=== PATIENT | male | born 1975 | race Caucasian/White ===

== ENCOUNTER → 2019-06-28 12:48 | Outpatient (BNVA) | payer BC, SELFPAY | PROVIDERS: Family Provider Family Medicine; Visit Provider Nurse Practitioner Family | DX: R05 Cough (principal) | CPT/HCPCS: 87071; 87400; 87635; 87880 ==

== ENCOUNTER → 2019-10-04 00:01 | Outpatient (BNVA) | payer BC, SELFPAY | PROVIDERS: Family Provider Family Medicine; Visit Provider Nurse Practitioner Family | DX: R52 Pain, unspecified (principal); Z20.828 Contact with and (suspected) exposure to other viral communicable diseases | CPT/HCPCS: 87635 ==

== ENCOUNTER 2025-02-18 03:38 | Emergency (ER) | payer BC, SELFPAY ==
--- OUTSIDE RECORDS SUMMARY | 2023-12-26 07:20 | XMS_ITS ---
Author Organization [facility] Address [address] [place] [address] Care Team Providers Care Snowblower Mechanic Name Role Phone Peggy Camara Primary Care Provider CAMARA, PEGGY Unavailable Unavailable REASON FOR VISIT F/U Encounters Encounter Location Date Provider Diagnosis 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
--- OUTSIDE RECORDS SUMMARY | 2024-10-18 03:20 | XMS_ITS ---
Author Organization [facility] Address [address] [place] [address] Care Team Providers Care Zigzag Tunnel Elastic Operator Name Role Phone Jax Peggy Primary Care Provider CAMARA, PEGGY Unavailable Unavailable REASON FOR VISIT 1 month Follow Up, Patient in need of CMP,A1C,CBC, PSA, Thyroid, Lipid, UA Microalbumin Labs, and Statin therapy for Kidney Health, Need Annual Diabetic eye exam, Colon Screen needed Encounters Encounter Location Date Provider Diagnosis [facility] Office [address] [place] [phone] 10/18/2024 [facility] Plan Of Treatment No Information Progress Notes * Bryce FREYDOB: 7 (49 yo M)Acc No.[id number]:10/18/2024 Progress Notes Patient: Bryce Akins Provider: Forrest Camara APRN :1975 A ge:49 Y S ex:Male Date:10/18/2024 Address:[address] [place], [place] [phone] Subjective: * Chief Complaints: * 1 month Follow UpPatient in need of CMP,A1C,CBC, PSA, Thyroid, Lipid, UA Microalbumin Labs, and Statin therapy for Kidney HealthNeed Annual Diabetic eye examColon Screen needed Plan: * Preventive Medicine: Screenings: D IABETIC EYE EXAM Date of last dilated eye exam 0 05/09/2022 Dr. Vasques Retinopathy N o C OLORECTAL CANCER SCREENING: Date of last colonoscopy H as never been done Colorectal screening: H as never been done V ACCINATIONS: Completed vaccinations include: I ncludes covid vaccines P HQ9 09/13/24. Billing Information: * Procedure Codes: Care Plan Details* * Electronic signature of Alicia Camara APN on 02/18/2025 at 03:45 AM EASEMENT WORKER Sign off status: Pending * Provider: Forrest Camara ANESTHESIOLOGIST PHYSICIAN Date: 0 10/18/2024 Generated for Pramod newton/Hugo/Arletteitting on: 04/20/2024 03:45 AM EASEMENT WORKER
--- OUTSIDE RECORDS SUMMARY | 2025-02-18 03:46 | XMS_ITS | Data Portability ---
Author Organization [facility] Karena Kovacs [facility] Address [address] [place] [phone] Assessment No assessment recorded. Plan of Treatment Reminders Order Date Submit Date Provider Last Modified By Organization Details Last Modified Time Details Appointments None record ed. Lab None record ed. Referral None record ed. Procedures None record ed. Surgeries None record ed. Imaging XR, ankle, 3 or more view 023 03/01/20 23 [id number] [facility] ([facility]), [address] [place] [address], [phone], 3 10:01:27 Medication Orders None record ed. Patient TargetsNo targets recorded. Patient InstructionsNo instructions recorded. Reason for Referral None Reported. Medical Equipment None Reported. Allergies No known drug allergies Medications Name Sig Start Date Stop Date Status Note LastModified by Organization Details LastModified Time metformin 500 mg tablet TAKE 1 TABLET BY MOUTH TWICE A DAY WITH FOOD active Not Available Not Available No t Available azithromyc in 250 mg tablet TAKE 2 TABLETS BY MOUTH TODAY, THEN TAKE 1 TABLET DAILY FOR 4 DAYS active Not Available Not Available No t Available alprazolam 0.5 mg tablet TAKE 1/2 TO 1 TABLET BY MOUTH TWICE A DAY NEEDED FOR ANXIETY 30 DAYS active Not Available Not Available No t Available gabapentin 300 mg capsule TAKE ONE CAPSULE BY MOUTH 6 TIMES DAILY DIRECTED active Not Available Not Available No t Available lisinopril 5 mg tablet TAKE 1 TABLET BY MOUTH EVERY DAY active Not Available Not Available No t Available escitalopr am 20 mg tablet TAKE 1 TABLET BY MOUTH EVERY DAY active Not Available Not Available No t Available metformin two times daily 2014 active take for blood sugar control. Take with food. v/o CSwift/ mithRN; 04470; Recorded 5 4:07PM by Conchis Boland RN (Authoriz ed through Pedrito Abarca DO), Refill Request; Refill Quantity: 120; Tablet; Not Available Not Available Not Available Victoza 3-Darren 0.6 mg/0.1 mL (18 mg/3 mL) subcutaneo us pen injector INJECT 1.8MG SUBCUTANE OUSLY EVERY DAY active Not Available Not Available No t Available Vitals Date Recorded Body height Body mass index (BMI) Body weight Oxygen saturation Heart rate Body temperature Respiratory rate Provider Name and Address Organization Details Last Updated DateTime 3 187.96 cm 35.3 kg/m2 632088. 9 g 97 % 81 /min 96.6 [degF] 20 /min Felicia Badillo [facility], [facility] 3 12:06:38 Social History None recorded. Functional Status None recorded. Mental Status None recorded. Family History Nothing Reported. Medical History No medical history recorded. Past Encounters Encounter ID Performer Location Encounter Start Date Encounter Closed Date Diagnosis/Indication Diagnosis SNOMED-CT Code Diagnosis ICD10 Code Diagnosis IMO Codes Diagnosis Note [id number] [facility] ([facility]) [address] [place] [phone] 03/01/2023 11:09:52 03/01/2023 14:47:15 Pain in left foot 5680360703 62862 M79.672 Sprain of left ankle 105 8579402 0896489 S93.402A Will send Xray to radiology for overread. RICE. Max wrap bandage placed. Patient will follow with PCP Suzanne CHINP next week. Health Concerns Section Related Observation LastModified by Organization Detai ls LastModified Time None Recorded Concern Status LastModified by Organization Details LastModified Time None Recorded Advance Directives Directive None Recorded Payers Insurance Date Sequence Insurance Name Policy Number Policy Alvarez Covered Member ID Alvarez Member ID Guarantor Name 04/08/2023 1 [place] [id number] Bryce Frey [id number] Bryce Blackwell Shante Notes Date Note Type Note Provider Name and Address Organization Details Recorded Time 03/01/20 23 text/htm l Joint PainReported by PatientHPIFor location, patient reportspain radiating to the foot leftbut reportsleft ankle. For quality, patient reportssharpandtingling. For severity, patient reportsinterferes with sleepbut reportsno change. For associated symptoms, patient reportstinglingandnumbness of the legs/feet. For duration, patient reportspresent <1 month. For timing, patient reportsintermittent. For context, patient reportstrauma. For alleviating factors, patient reportsrest. For aggravating factors, patient reportsmovement/positioningand twisting. For adls affected, patient reportsclimbing stairs.Patient states that he fell while descending bleachers and landed with his right foot and leg under him. States that he has pain and swelling with most of pain on the lateral aspect of the left ankle.ROS as noted in the HPI [facility] [address] [place] [address], [phone], [facility] 03/01/2023 14:41:26
--- OUTSIDE RECORDS SUMMARY | 2025-02-18 03:46 | XMS_ITS | Clinical Summary ---
Author Organization [facility] Address [address] Edwards: Epic Prelude ADT [place]AL [phone] Care Team Providers Care Traffic Representative Name Role Phone Unavailable Primary Care Provider Unavailabl e Allergies No known active allergies Medications OTHER Presnisolone 1%, Gatifloxacin 0.5%, Bromfenac 0.07%. Start 3 days before surgery 1 drop 3 times a day in the surgical eye for 24 days. 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 Gender Identity Not on file Sexual Orientation Not on file Last Filed Vital Signs Vital Sign Reading Time Taken Comments Blood Pressure 121/72 12/07/2019 10:34 AM CDT Pulse 74 12/07/2019 10:34 AM CDT Temperature 36.4 C (97.6 F) 12/07/2019 10:34 AM CDT Respiratory Rate 18 12/07/2019 8:55 AM CDT Oxygen Saturation - - Inhaled Oxygen Concentration - - Weight 122.5 kg (270 lb) 12/07/2019 1:18 PM CDT Height 188 cm (6' 2 ) 12/07/2019 1:18 PM CDT Body Mass Index 34.67 12/07/2019 1:18 PM CDT Plan of Treatment Health Maintenance Due Date Last Done Comments DTAP/TDAP/TD VACCINES (1 - Tdap) 06/23/1995 HEPATITIS B VACCINES (1 of 3 - 19+ 3-dose series) 03/1995 COLORECTAL SCREENING 2021 Colorectal Cancer Screening 2021 FIT-DNA Q 3 years 2021 FIT/FOBT Q 1 year 2021 Flex Sig/CT Colonography Q 5 years 2021 INFLUENZA VACCINE (#1) 2024 Medical Devices Implanted Type Area Buhr Mill Operator Device Identifier Shelf Expiration Date Model / Serial / Lot Lens Io Tecnis Multi 2.75pl Zkb00 21.5d - [id number] Implanted:Qty: 1 on 11/23/2019 by Javier Rob MD Eye Left: Eye [employer] 11/24/2021 ZKB00 21.5D / [id number] / Lens Io Tecnis Multi 2.75pl Zkb00 21.0d - [id number] Implanted:Qty: 1 on 12/07/2019 by Javier Rob MD Eye Right: Eye [employer] 08/18/2021 ZKB00 21.0D / [id number] /
--- OUTSIDE RECORDS SUMMARY | 2025-02-18 03:46 | XMS_ITS | Clinical Summary ---
Author Organization [facility] Address [address] [place] [address] Care Team Providers Care Party Plan Dealer Name Role Phone Unavailable Primary Care Provider Unavailabl e Allergies No known active allergies Medications OTHERIndication s:Send both bottles at once Presnisolone 1%, Gatifloxacin 0.5%, Bromfenac 0.07%. Start 3 days before surgery 1 drop 3 times a day in the surgical eye for 24 days. 4 mL 1 0 Active lisinopriL (PRINIVIL) 10 mg tablet 0 Active metFORMIN (GLUCOPHAGE) 1,000 mg tablet TK 1 T PO BID FOR DIABETES MELLITUS 0 Active glipiZIDE (GLUCOTROL XL) 5 mg Extended Release 24 hour tablet TK 1 T PO QAM BEFORE THE FIRST MEAL 0 Active Active Problems No known active problems Social History Tobacco Use Types Packs/Day Years Used Date Smoking Tobacco: Never Smokeless Tobacco: Never Sex and Gender Information Value Date Recorded Sex Assigned at Not on file Legal Sex Male 2:47 PM CDT Gender Identity Not on file Sexual Orientation Not on file Last Filed Vital Signs Vital Sign Reading Time Taken Comments Blood Pressure 121/72 12/07/2019 10:34 AM CDT Pulse 74 12/07/2019 10:34 AM CDT Temperature 36.4 C (97.6 F) 12/07/2019 10:34 AM CDT Respiratory Rate 18 12/07/2019 8:55 AM CDT Oxygen Saturation 96% 12/07/2019 10:34 AM CDT Inhaled Oxygen Concentration - - Weight 122.5 kg (270 lb) 12/07/2019 1:18 PM CDT Height 188 cm (6' 2 ) 12/07/2019 1:18 PM CDT Body Mass Index 34.67 12/07/2019 1:18 PM CDT Plan of Treatment Health Maintenance Due Date Last Done Comments DIABETES ANNUAL FOOT EXAM 1994 DIABETES HBA1C Q 6 MONTHS 1994 DIABETES MICROALBUMIN ANNUAL SCREEN 1994 LDL CHOLESTEROL ANNUAL 1994 DTAP/TDAP/TD VACCINES (1 - Tdap) 06/23/1995 HEPATITIS B VACCINES (1 of 3 - 19+ 3-dose series) 06/23/1995 DIABETES ANNUAL RETINAL EXAM 11/30/202011/2019, 12/01/2019, 12/01/2019, Additional history exists COLORECTAL SCREENING 2021 Colorectal Cancer Screening 2021 FIT-DNA Q 3 years 2021 FIT/FOBT Q 1 year 2021 Flex Sig/CT Colonography Q 5 years 2021 INFLUENZA VACCINE (#1) 2024 Medical Devices Implanted Type Area Change Management Analyst Device Identifier Shelf Expiration Date Model / Serial / Lot Lens Io Tecnis Multi 2.75pl Zkb00 21.5d - [id number] Implanted:Qty: 1 on 11/23/2019 by Javier Rob MD at [facility] Left: Eye [employer] 11/24/2021 ZKB00 21.5D / [id number] / Lens Io Tecnis Multi 2.75pl Zkb00 21.0d - [id number] Implanted:Qty: 1 on 12/07/2019 by Javier Rob MD at [facility] Right: Eye [employer] 08/18/2021 ZKB00 21.0D / [id number] / Insurance Advance Directives For more information, please contact: [phone] * Full Code (Latest Code Status on File) Date Activated Date Inactivated Comments 12/07/2019 8:56 AM 12/07/2019 12:56 PM * Full Code Date Activated Date Inactivated Comments 11/23/2019 8:51 AM 11/23/2019 12:19 PM
--- OUTSIDE RECORDS SUMMARY | 2025-02-18 03:46 | XMS_ITS | Patient Health Record ---
Author Organization [facility] Address [address] [place] [address] Care Team Providers Care Pricing Associate Name Role Phone Camara, [facility] Primary Care Provider CAMARA, [facility] Unavailable Unavailable Allergies No Known Allergies Reason For Referral Reason colon cancer screeni ng Diagnosis 1 Colon cancer screeni ng (Z12.11) Referral Organization [facility] Referring Provider First Name Erica Referring Provider Last Name Camara Referring Provider Speciality Nurse Prac palomo Referred Provider Kelvin Duarte Referred Provider Specialty General Surg merritt General Notes Lula Ya RN 11/30/2024 04:20:23 PM CDT > Per Sari patient had apt on October 05 but was a no show. Referral Priority Routine Referral Appointment Date 10/05/2024 Medications Medication SIG (Take, Route, Frequency, Duration) Notes Start Date End Date Status Ondansetron 4 MG Tablet Disintegrating DISSOLVE 1 TABLET BY MOUTH EVERY 4 HOURS NEEDED FOR NAUSEA FOR 30 DAYS; Duration: 30 Active Furosemide 20 MG Tablet 1 tablet Orally Once a day PRN swelling; Duration: 90 days Not-Taking Lisinopril 5 MG Tablet TAKE 1 TABLET BY MOUTH EVERY DAY; Duration: 90 Not-Taking Gabapentin 300 MG Capsule Oral; Duration : 90 Days Not-Taking traMADol HCl 50 MG Tablet 1 TO 2 TABS BY MOUTH EVERY 4 HOURS NEEDED FOR SEVERE PAIN FOR 30 DAYS Oral; Duration: 30 Days Not-Taking ALPRAZolam 1 MG Tablet TAKE 1/2 - 1 TABL ET BY MOUTH TWICE A DAY NEEDED FOR ANXIETY FOR 30 DAYS; Duration: 30 days 09/13/2024 Active metFORMIN HCl 500 MG Tablet TAKE 1 TABLET BY MOUTH TWICE A DAY WITH FOOD; Duration: 90 days Active Gabapentin 300 MG Capsule TAKE ONE CAPSU LE BY MOUTH 6 TIMES DAILY DIRECTED; Duration: 90 days Active Olmesartan Medoxomil 5 MG Tablet 1 tab Orally once a day; Duration: 90 days 12/05/2023 Active Escitalopram Oxalate 20 MG Tablet TAKE 1 TABLET BY MOUTH EVERY DAY; Duration: 90 Active Immunizations Vaccine Route Administration Date Status Comme nts COVID-19 Vaccine (Moderna) Dose #1 Unknown 01/22/2021 A dministered COVID-19 Vaccine ([facility]) Bi valent PFR12+ Unknown 12/07/2021 Administered Fluarix Quadrivalent Unknown 01/06/2023 Administered Flulaval, Trivalent, Syringe , 0.5mL, PF Unknown 12/29/2023 Administered Social History Tobacco Use: Social History Observation Description Date Details (start date - stop date) Former Smoker NA - NA Social History Depression Screening Social Info Question Answer Notes depression screening findings Findings Negative (0 -4) PHQ-9 Little interest or p trenton in doing things Not at all Feeling down, depressed, or hopeless Not at all Trouble falling or staying asleep, or sleeping t oo much Not at all Feeling tired or having little energy Not at all Poor appetite or overeating Not at all Feeling bad about yourself, or that you are a failure, or have let yourself or your family down Not at all Trouble concentrating on thi ngs, such as reading the newspaper or watching television Not at all Moving or speaking so slowly that other people could have noticed. Or the opposite ? being so fidgety or restless that you have been moving around a lot more than usual Not at all Thoughts that you would be b ankit off , or of hurting yourself in some way Not at all Total Score 0 Drugs/Alcohol: Social Info Question Answer Notes Alcohol Screen (Audit-C) Did you have a drink containing alcohol in the past year? No Points 0 Interpretation Negative Drugs Have you used drugs other than those for medical reasons in the past 12 months? No Tobacco Use: Social Info Question Answer Notes Tobacco Control (Standard) Tobacco use: Former smoker How long has it been since you last smoked? 1-5 years Additional Details Category Social Info Options Details Drugs/Alcohol: Do you smoke marijuana? Ad mits, Has medical marijuana card Do you drink alcohol? No Section Notes: Depression screen completed 05/27/2022 score 0 Depression screen completed 05/30/2023 score 0 Depression screen completed 05/30/2023 score 0 Depression screen completed 05/30/2023 score 0, PHQ9 09/13/2024 11/08/2021 Depression screen completed 05/30/2023 score 0 Depression screen completed 05/30/2023 score 0 Problems Problem Type SNOMED Code ICD Code Onset Dates Problem Status W/U Status Risk Notes Problem Type II diabetes mellitus without complication (736891049) Controlled type 2 diabetes mellitus without complication, without long-term current use of insulin (E11.9) Active confirmed Problem Anxiety (62988047) Anxiety (F41.9) Active confirmed Problem Obesity (774653658) Obesity (BMI 30-39.9) (E66.9) Active confirmed Problem Depression (072757730) Other depression (F32.89) Active confirmed Problem Hypertrophy of tonsils (14733209) Enlarged tonsils (J35.1) Active confirmed Problem Hypertension (39466914) Hypertension (I10) Active confirmed Problem 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 (998291567335) 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) Active confirmed Vital Signs Heart Rate 79 /min 09/13/2024 Temperature 97.3 degrees Fahrenheit 09/13/2024 Respiratory Rate 18 /min 09/13/2024 Blood pressure diastolic 74 mm Hg 09/13/2024 Oximetry 98 % 09/13/2024 Height-cm 187.96 cm 09/13/2024 Weight-kg 125.19 kg 09/13/2024 Height 74 in 09/13/2024 Blood pressure systolic 136 mm Hg 09/13/2024 Weight 276 lbs 09/13/2024 BMI 35.43 kg/m2 09/13/2024 Encounters Encounter Location Date Provider Diagnosis [facility] Office [address] [address] 09/13/2024 Erica Camara Anxiety F41.9 ; 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 E11.610 ; 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 hypoglycemic drugs Z79.84 ; Other depression F32.89 ; Hypertension I10 ; Prostate cancer screening Z12.5 ; Colon cancer screening Z12.11 ; Nausea R11.0 ; Depression screen Z13.31 and Thyroid disorder screen Z13.29 [facility] [address] [place] [address] 03/09/2024 Erica Camara Enlarged tonsils J35 .1 and Strep pharyngitis J02.0 [facility] [address] [place] [address] 11/15/2024 Erica Camara [facility] [address] [place] [address] 08/26/2024 [facility] Anxiety F41.9 [facility] [address] [place] [address] 05/25/2024 [facility] Acute non-recurrent maxillary sinusitis J01.00 [facility] [address] [place] [address] 03/05/2024 [facility] Assessments Encounter Date Diagnosis (ICD Code) Assessment Notes Treatment Notes Treatment Clinical Notes Section Notes 03/09/2024 Strep pharyngitis (ICD-10 - J02.0) decadron 4 mg im z pakmedrol dose pack 03/09/2024 Enlarged tonsils (ICD-10 - J35.1) 08/26/2024 Anxiety (ICD-10 - F41.9) 09/13/2024 Anxiety (ICD-10 - F41.9) xanax 09/13/2024 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 (ICD-10 - E11.610) gabapentin metformin ha1c 05/25/2024 Acute non-recurrent maxillary sinusitis (ICD-10 - J01.00) 09/13/2024 [facility] (current) use of oral hypoglycemic drugs (ICD-10 - Z79.84) 09/13/2024 Other depression (ICD-10 - F32.89) lexapro 09/13/2024 Hypertension (ICD-10 - I10) olmesartan cbc cmp lipids 09/13/2024 Prostate cancer screening (ICD-10 - Z12.5) psa 09/13/2024 Colon cancer screening (ICD-10 - Z12.11) dr duarte 09/13/2024 Nausea (ICD-10 - R11.0) zofran 09/13/2024 Depression screen (ICD-10 - Z13.31) 09/13/2024 Thyroid disorder screen (ICD-10 - Z13.29) 03/09/2024 Other Questions asked and answered; discharged to home. 09/13/2024 Other Questions asked and answered; discharged to home. Plan Of Treatment Future Test Test Name Order Date CBC w\ Auto Diff 31789 09/15/2024 Comprehensive Metabolic Panel (CMP) 8005 3 09/15/2024 Hemoglobin A1c 83699 09/15/2024 Lipid Panel Reflex DLDL 76582, 35373 Thyroid Stimulating Hormone (TSH) 72186 09/15/2024 PSA Medicare Screening--G0103 09/15/2024 Insurance Providers Payer Name Payer Address Payer Phone Subscriber Number Group Number Insured Name Patient Relationship to Insured Coverage Start Date Coverage End Date [place] [address] [place] [phone] [id number] Bryce Frey Self - patient is the insured Medications Administered Medication Instructions Date of Administration Dosage Notes DEPO-Medrol 05/27/2022 [place] [address] 3-01 pt tolerated well/instructed to wait 20 min DEPO-Medrol 09/15/2023 40 mg ndc 42662-226 3-01 pt tolerated well/instructed to wait 20 min dexAMETHasone 05/27/2022 [place] [address]-5 423-00 pt tolerated well/instructed to wait 20 min dexAMETHasone 09/15/2023 4 mg ndc 61662-3 423-00 pt tolerated well/instructed to wait 20 min dexAMETHasone 03/09/2024 [place] [address]-6 165-02 pt tolerated well/instructed to wait 20 min Rocephin 09/15/2023 [place] [address] -11 pt tolerated well/instructed to wait 20 min Medical (General) History Medical History History ICD Code type II diabetes High Blood Pressure anxiety seasonal allergies Surgical History Surgery Date(Month/Year) cyst removal, left wrist
[2025-02-18 03:54] VITALS: BP 149/78; PULSE 59; RESP 24; TEMP 36.3; O2SAT 97; BMI 34.0
--- NOTE | 2025-02-18 03:55 | ECG_ITS ---
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 Measurements Intervals [place] Rate: 55 P: 33 NJ: 146 QRS: 44 QRSD: 96 T: 44 QT: 418 QTc: 401 Interpretive Statements SINUS BRADYCARDIA Compared to ECG 10/04/2017 05:10:45 Sinus rhythm no longer present Electronically Signed On 02-19-2025 16:45:39 PARTS LISTER by Bandar Lim M.D. [email or web address]
--- NOTE | 2025-02-18 03:58 | XRR_ITS ---
PROCEDURE INFORMATION: Exam: XR Left Shoulder Exam date and time: 02/18/2025 4:01 AM Age: 49 years old Clinical indication: Injury or trauma; Fall; Blunt trauma (contusions or hematomas); Shoulder; Left TECHNIQUE: Imaging protocol: Radiologic exam of the left shoulder. Views: 2 or more views. COMPARISON: No relevant prior studies available. FINDINGS: Bones/joints: No acute fractures are identified. Narrowing of the subacromial space with superior humeral elevation is nonspecific. Acromioclavicular joint alignment is unremarkable. Mild osseous spurring of the undersurface of the acromion. Negative for bony erosion or lytic lesion. Soft tissues: Radiographically unremarkable. XR/XR shoulder LT min 2V* [id number] IMPRESSION: 1. Narrowed subacromial space with superior elevation of the humerus of uncertain significance. 2. No acute fractures.
[2025-02-18 04:01] VITALS: BP 149/78; PULSE 59; RESP 24; TEMP 36.3; O2SAT 97
--- NOTE | 2025-02-18 04:01 | W.ED.EXTPRO ---
HPI - Extremity Problem General: Chief complaint: Extremity Injury, Upper Stated complaint: Fell Hurt LT shoulder Time Seen by Provider: 02/18/25 03:57 History of Present Illness: 49-year-old male presents emergency room with complaint of left shoulder pain that began 1 month ago after he fell he had another episode where he was manipulating his arm above his head had severe pain and his massaged it for him and it got a little better. Then tonight he began having more severe pain he did not reinjure it no recurrent falls or any other specific injuries. Is localized mostly to the shoulder does not extend into his hand. He does not have any associated neck pain. Associated symptoms: Deny chest pain, fever(s) or rash Related Data Home Medications ?Medication ?Instructions ?Recorded ?Confirmed metformin 500 mg tablet 500 mg PO BID 06/28/19 10/04/19 Previous Rx's ?Medication ?Instructions ?Recorded diclofenac sodium 75 mg 75 mg PO Q12H PRN pain #20 tabs 02/18/25 tablet,delayed release hydrocodone 5 mg-acetaminophen 325 1 tab PO Q6H PRN pain #10 tabs 02/18/25 mg tablet Allergies Allergy/AdvReac Type Severity Reaction Status Date / Time No Known Allergies Allergy Verified 10/04/19 11:33 Review of Systems Const: Denies: fever(s) or chills Card: Denies: chest pain Resp: Denies: dyspnea GI: Denies: abdominal pain : Denies: dysuria, urinary frequency or urinary urgency Musc: Reports: joint pain; Denies: neck pain or back pain Skin/Breast: Denies: rash PFSH ED PFSH: Social History Smoking and tobacco/nicotine status: never used tobacco/nicotine Alcohol intake: never Substance/Drug Use: never Physical Exam Const: COMMON NORMALS: no acute distress GENERAL APPEARANCE: cooperative and comfortable ORIENTATION/CONSCIOUSNESS: Yes awake, Yes oriented to person, Yes oriented to place and Yes oriented to time HENMT: COMMON NORMALS: normocephalic, atraumatic and hearing grossly normal bilaterally HEAD & SCALP: normocephalic and atraumatic Resp: COMMON NORMALS: normal respiratory effort, No retractions, No use of accessory muscles and clear to auscultation bilaterally AUSCULTATION: clear to auscultation bilaterally Cardio: COMMON NORMALS: regular rate, regular rhythm and No murmurs present (Cardio) RATE: regular rate RHYTHM: regular rhythm Extremity: OTHER: Examination of the left shoulder there is no obvious step-offs no deformity pain is reproducible with movement in the shoulder. No pain with palpation of at the AC joint. Neurovascular the left upper extremity is intact Neuro: SENSORIUM/ORIENTATION: Yes oriented to person, Yes oriented to place and Yes oriented to time Skin: COMMON NORMALS: no rashes or lesions noted GENERAL SKIN EXAM: no rashes or lesions noted Course Vital Signs: Vital signs: Vital Signs Temperature 97.4 F L 02/18/25 04:01 Pulse Rate 59 L 02/18/25 05:08 Respiratory Rate 16 02/18/25 05:08 Blood Pressure 122/98 02/18/25 05:08 Pulse Oximetry 95 02/18/25 05:08 Oxygen Delivery Me thod Room Air 02/18/25 04:01 MDM - Extremity (Nontraumatic) Medical Decision Making Medical decision making Social determinants: None I reviewed the patient's medical record. I reviewed the patient's current home meds Alternate historians: Differential diagnosis rotator cuff injury versus AC joint injury versus dislocation Lab Review: None Imaging: Mild narrowing at the AC joint suspect may have AC joint injury no acute fracture no dislocation Assessment of risk: Level of risk: Low Hospitalization considerations: No consideration for hospitalization Reexamination: Repeat exam neurologically intact has had some improvement with morphine and ketorolac. Assessment and plan: Discharge patient home and arm sling gave diclofenac and hydrocodone to use as needed for pain will set him up for follow-up with orthopedic surgery may need further evaluation including advanced imaging given the length of time he has had this pain Lab Data Radiology Impressions Shoulder X-Ray 02/18/25 03:58 IMPRESSION: 1. Narrowed subacromial space with superior elevation of the humerus of uncertain significance. 2. No acute fractures. Laboratory Results POC Glucose 295 mg/dL (70-110) H 02/18/25 04:13 All radiology interpretation(s) finalized by discharge EKG Data EKG 1: I personally reviewed and interpreted this EKG as follows: Interpretation: EKG 02/18/2025 3:55 AM sinus bradycardia rate of 55 parable 146 QTc [address] changes noted. No EKG available for comparison Discharge Plan Discharge Patient Disposition: Home Clinical Impression: Acromioclavicular joint injury Condition: Stable Prescriptions: New hydrocodone-acetaminophen 5-325 mg tablet 1 tab PO Q6H PRN (Reason: pain) Qty: 10 0RF diclofenac sodium 75 mg tablet,delayed release (DR/EC) 75 mg PO Q12H PRN (Reason: pain) Qty: 20 0RF No Action metformin 500 mg tablet 500 mg PO BID Discharge Orders: Discharge ED (Routine); Ordered 02/18/25 Ordered By: Chandler Cabello Referrals: Darron Hernandez DO [Family Provider, Family Practice] Camara,CHANELLE Maldonado [Primary Care Provider, Nurse Practitioner] Discharge Diet: Usual diet Discharge Activity: Increase activity as tolerated Patient Instructions: Opioid Safety, Pain Management, Patient Portal & Dinesh Instructions Activity Restrictions/Additional Instructions: [facility] you [facility] your healthcare needs today. It is very important that you follow up as instructed or that you return to the Emergency Department should you have concerns or if your condition changes or worsens in any way. Emergency department visits are focused on emergent conditions, in some cases you may require further evaluation on an outpatient basis. You are seen emergency room with complaint of shoulder pain. On the x-ray there is no acute fracture there is some separation at the AC joint. Recommend you wear a sling you are given diclofenac and hydrocodone to use for pain case management make arrangements for you to follow-up with orthopedics (Please note that included in your discharge packet is information concerning opioid safety and pain management. This information is given to all patients were discharged from the ER regardless of their discharge diagnosis or the medicines they usually take or are prescribed.) Print Language: Icelandic Coding Level of Care Code ED Services Account Manager for Darshan Stevens
[2025-02-18 04:28] VITALS: RESP 18; O2SAT 96
[2025-02-18] MEDS: ondansetron 2 mg/ML SDV 2 mL 4 MG IVP (04:28)
[2025-02-18] MEDS: morphine 4 mg/mL SDV 1 mL IVP (04:28)
[2025-02-18 04:52] VITALS: BP 132/64; PULSE 58; RESP 17; O2SAT 94
[2025-02-18 05:04] VITALS: BP 122/98; PULSE 59; RESP 16; O2SAT 95
[2025-02-18 05:08] VITALS: BP 122/98; PULSE 59; RESP 16; O2SAT 95
--- NOTE | 2025-02-21 07:24 | DCPLANNER ---
messaged ortho for er f/u
== END 2025-02-18 05:10 | disposition home or self-care (01) ==
PROVIDERS: Emergency Provider Family Medicine; Family Provider Family Medicine; PCP Nurse Practitioner Family
DX: S49.92XA Unspecified injury of left shoulder and upper arm, initial encounter (principal); Z79.84 Long term (current) use of oral hypoglycemic drugs; W19.XXXA Unspecified fall, initial encounter
CPT/HCPCS: 36416; 73030; 82962; 93005; 96374; 96375; 99284; J1885; J2270; J2405

== ENCOUNTER → 2025-03-04 07:58 | Outpatient (BNVA) | payer BC, SELFPAY | PROVIDERS: Family Provider Family Medicine; PCP Nurse Practitioner Family; Visit Provider Physician Assistant | DX: M75.42 Impingement syndrome of left shoulder (principal); M25.512 Pain in left shoulder; W19.XXXA Unspecified fall, initial encounter | CPT/HCPCS: 73030 ==